=== PATIENT | female | born 1955 | race Caucasian/White ===

== ENCOUNTER 2025-01-29 09:27 | Outpatient (AMB) | payer OTHER, SELFPAY ==
--- NOTE | 2025-01-29 09:28 | MHC.PC.OV ---
Vital Signs 01/29/25 09:30 Height 5 ft 3.39 in Weight 146 lb BMI 25.5 BP 133/63 Respiration 16 Pulse 70 Pulse Source Pulse Oximeter Temp 97.8 F Temp Source Temporal Artery Scan Pulse Oximetry (%) 99 Oxygen Delivery Method Room Air Intake Visit Reasons: Est Care Clinical Laboratory Manager Required: No Accompanied by: Self / Same As Patient Allergies No Known Allergies Allergy (Verified 01/29/25 09:50) Medication List - Last Reconciled 01/29/25 by Sabina Solares PA-C No Known Home Meds Tobacco use date assessed: 01/29/25 Fall risk assessment: No Falls in past year Last assessed Fall Risk: 01/29/25 Dental Screening Dental Screen Date: 01/29/25 Did you have a dental visit in the last 12 months?: Yes Did you have a dental problem in the last 6 months where you did not have access to dental care?: No Was dental information given to patient?: Patient has dentist HPI Est Care HPI Details The patient is a 69-year-old female presenting for an annual physical exam and to establish care with a new primary care provider. She has a history of eustachian tube dysfunction and decreased hearing, for which she purchased hearing aids about a year ago. She is requesting a referral to an ENT specialist for further evaluation. The patient also reports temporomandibular joint syndrome, for which she occasionally uses a mouthguard. She is interested in a home sleep study due to her TMJ syndrome and the presence of dogs at home. She has multiple nevi and is seeking a referral to dermatology, preferring to consult with a group sales coordinator recommended by a friend. The patient has not had a mammogram since 2018 and is agreeable to having one this year. She is also due for a colonoscopy, having last undergone the procedure in 2015, and is agreeable to scheduling it this year. Additionally, she has never had a bone density scan and will be referred for a DEXA scan. The patient denies any chest pain, shortness of breath, recent falls, dyspnea on exertion, leg swelling, blood in stools, or unintentional weight changes. She has not had blood work since 2018 or 2019, when her labs were within normal limits except for mild hypercholesterolemia. Social History - Housing: Lives near [place]. - Medication: Prefers natural remedies and avoids medications. [facility] Medical History (Updated 01/29/25 @ 11:02 by Sabina Solares PA-C) Periodic health assessment, general screening, adult Screening for diabetes mellitus Screening for osteoporosis Breast cancer screening Colon cancer screening TMJ syndrome Annual physical exam Need for assessment for sleep apnea Numerous moles Wears hearing aid in both ears History of mammogram (~07/02/18) Eustachian tube dysfunction Allergies History of Lyme disease Lumbar herniated disc IBS (irritable bowel syndrome) Establishing care with new doctor, encounter for Surgical History History of colonoscopy (~11/04/14) Hx of lumbar discectomy Family History Father Dementia Mother Dementia Social History Housing: House Alcohol intake: current Alcohol intake frequency: holidays/special occasions only Patient Tobacco Use Status: Never used Tobacco service: No Current occupational status: employed and retired 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 1. Little interest or pleasure in doing things: not at all 2. Feeling down, depressed, or hopeless: not at all 3. Trouble falling or staying asleep, or sleeping too much: not at all 4. Feeling tired or having little energy: not at all 5. Poor appetite or overeating: not at all 6. Feeling bad about yourself - or that you are a failure or have let yourself or your family down: not at all 7. Trouble concentrating on things, such as reading the newspaper or watching television: not at all 8. Moving or speaking so slowly that other people could have noticed. Or the opposite - being so fidgety or restless that you have been moving around a lot more than usual: not at all 9. Thoughts that you would be better off or of hurting yourself in some way: not at all Total score: 0 Depression Screening Interpretation: Negative Depression Screening Done: Yes 67744 - PHQ-9 Billing: Yes Source: Developed by Drs. Malik Escobar, Berny Hackett and colleagues, with an educational cisco from [employer]. Thrive Questionnaire Date Thrive assessed: 01/29/25 I am a: Patient What is your living situation today?: I have a steady place to live Within the past 12 months, did the food you bought not last and you didn't have the money to get more?: Never true Within the past 12 months, did you worry whether your food would run out before you got money to buy more?: Never true Do you have trouble paying for medicines?: No Do you have trouble getting transportation to medical appointments?: No Do you have trouble paying your heating and electricity bill?: No Do you have trouble taking care of your child, family member or friend?: No Do you have trouble with day-to-day activities such as bathing, preparing meals, shopping, managing finances, etc.?: No Are you currently unemployed and looking for a job?: No Are you interested in more education?: No Please select the resources that you would like help with: None THRIVE Score: 0 AUDIT C Alcohol Use Questionnaire (AUDIT-C) 1. How often do you have a drink containing alcohol?: Monthly or less 2. How many drinks containing alcohol do you have on a typical day when you are drinking?: 1 or 2 3. How often do you have six or more drinks on one occasion?: Never Total Score: 1 Score Reviewed/Action Taken: No SUDHIR-7 AMB Questionnaire SUDHIR-7 Date SUDHIR - 7 assessed: 01/29/25 Feeling nervous, anxious, or on edge: 0 = Not at all Not being able to stop or control worryin = Not at all Worrying too much about different things: 0 = Not at all Trouble relaxin = Not at all Being so restless that it is hard to sit still: 0 = Not at all Becoming easily annoyed or irritable: 0 = Not at all Feeling afraid as if something awful might happen: 0 = Not at all Total SUDHIR-7 score (0-4 normal; 5-9 mild; 10-14 moderate; 15-21 severe): 0 Source: Developed by Ruba Lopez Kurt Kroenke and colleagues, with an educational cisco from [employer]. SUDHIR-7 Assessment Billing SUDHIR-7 Assessment Tool: SUDHIR-7 Assessment 19258 Review of Systems Const Details: - Cardiovascular: Denies chest pain, leg swelling. - Respiratory: Denies shortness of breath, dyspnea on exertion. - Gastrointestinal: Denies blood in stools. - General: Denies unintentional weight gain or loss, recent falls. Physical exam (Primary Care) Vital Signs: Last Vital Signs Temp 97.8 F 01/29/25 09:30 Pulse 70 01/29/25 09:30 Resp 16 01/29/25 09:30 BP 133/63 01/29/25 09:30 Pulse Ox 99 01/29/25 09:30 Oxygen Delivery Method Room Air 01/29/25 09:30 Care Plan Goal for BP management: <140/90 at Goal BMI result Body Mass Index 25.5 BMI Assessment/Plan discussion: High BMI High, discussed plan: lifestyle, weight reduction, dietary, physical activity and alcohol moderation Tobacco/Smoking Status: Tobacco use Status Tobacco use date assessed 01/29/25 01/29/25 09:38 Patient Tobacco Use Status Never used Tobacco 01/29/25 09:38 PHQ-9: PHQ-9 Score PHQ-9: Total score 0 01/29/25 09:38 Depression Screening Interpretation: Negative Thrive Assessment: Date of Thrive Assessment Date Thrive assessed 01/29/25 01/29/25 09:38 Const Other: Appearance: Alert. Oriented X3. No acute distress. Head: Normal external exam. Normocephalic. Atraumatic. Eyes: Pupils are equal, round, and reactive to light. Extraocular movements intact. Conjunctiva and sclera normal. Eyelids normal. Ears: External auditory canal normal. Tympanic membranes normal. History of eustachian tube dysfunction and wax in both ears with decreased hearing. Throat: Pharynx normal. Uvula midline. Moist mucous membranes. Neck: Normal inspection. Neck supple. Full range of motion. No adenopathy. Thyroid Normal. No meningeal signs. No neck mass noted. Cardiovascular: Normal heart rate and rhythm. Heart sound normal. No murmurs noted. Pulses normal throughout. Respiratory: No respiratory distress. Painless inspiration. Breath sounds normal. No wheezes/rales/rhonchi noted. Chest nontender. No accessory muscle usage noted or decreased air movement noted. Abdomen: Soft and nontender. Bowel sounds normal in all 4 quadrants. No distention noted. No organomegaly noted. No visible injury noted. Back: No costovertebral angle tenderness. Full range of motion noted. Skin: Skin warm and dry. Normal skin color. Normal skin turgor. No rashes/lesions/lacerations noted. Numerous moles noted. Extremities: No lower extremity edema. Extremities exhibit normal range of motion. Extremities nontender. Neuro: Oriented X 3. No motor deficit. No sensory deficit. Reflexes normal. Coding Level of Care Code New Pt Level 4 (31250) New Pt Prev Care >65yr (26745) Diagnoses Annual physical exam Z00.00 Establishing care with new doctor, encounter for Z76.89 TMJ syndrome M26.629 Numerous moles D22.9 Colon cancer screening Z12.11 Breast cancer screening Z12.39 Screening for osteoporosis Z13.820 Screening for diabetes mellitus Z13.1 Periodic health assessment, general screening, adult Z00.00 Eustachian tube dysfunction H69.90 Additional Codes PHQ-9 - 85720 - PHQ-9 Billing: Yes ([id number]) SUDHIR-7 Assessment Billing - SUDHIR-7 Assessment Tool: SUDHIR-7 Assessment 81606 ([id number]) Time Spent (min) 45 Assessment & Plan Assessment & Plan (1) Annual physical exam: Code(s): Z00.00 - Encounter for general adult medical examination without abnormal findings Category: Medical (2) Establishing care with new doctor, encounter for: Code(s): Z76.89 - Persons encountering health services in other specified circumstances Category: Medical (3) TMJ syndrome: Code(s): M26.629 - Arthralgia of temporomandibular joint, unspecified side Category: Medical Plan: A home sleep study is planned due to the patient's TMJ syndrome and her preference to remain at home with her dogs. Condition is chronic and stable will continue to monitor. (4) Numerous moles: Code(s): D22.9 - Melanocytic nevi, unspecified Category: Medical Plan: The patient will be referred to dermatology for evaluation of multiple nevi, with a preference for a group sales coordinator recommended by a friend. Condition is chronic and stable will continue to monitor. (5) Colon cancer screening: Code(s): Z12.11 - Encounter for screening for malignant neoplasm of colon Category: Medical Plan: The patient is due for a colonoscopy this year, as her last procedure was in 2014, and she is agreeable to scheduling it. (6) Breast cancer screening: Code(s): Z12.39 - Encounter for other screening for malignant neoplasm of breast Category: Medical Plan: The patient has not had a mammogram since 2018 and is agreeable to having one this year. (7) Screening for osteoporosis: Code(s): Z13.820 - Encounter for screening for osteoporosis Category: Medical Plan: The patient has never had a bone density scan and will be referred for a DEXA scan. (8) Screening for diabetes mellitus: Code(s): Z13.1 - Encounter for screening for diabetes mellitus Category: Medical Plan: A1c ordered for diabetes screening. (9) Periodic health assessment, general screening, adult: Code(s): Z00.00 - Encounter for general adult medical examination without abnormal findings Category: Medical Plan: Will order CBC, CMP, thyroid function tests to assess the patient for anemia, kidney function, potassium, sodium, thyroid, liver enzymes, lipid panel, vitamin D deficiency, vitamin B12 or folate deficiency, magnesium deficiency, diabetes assessment, inflammatory marker assessment. (10) Eustachian tube dysfunction: Code(s): H69.90 - Unspecified Eustachian tube disorder, unspecified ear Category: Medical Plan: The patient will be referred to an ENT specialist for further evaluation of her eustachian tube dysfunction and hearing loss. Condition is chronic and stable will continue to monitor. Plan Plan Patient was informed and verbally consented to the use of an ambient scribe for clinic note documentation during this visit. 1. Eustachian Tube Dysfunction The patient will be referred to an ENT specialist for further evaluation of her eustachian tube dysfunction and hearing loss. 2. Temporomandibular Joint Syndrome A home sleep study is planned due to the patient's TMJ syndrome and her preference to remain at home with her dogs. 3. Multiple Nevi The patient will be referred to dermatology for evaluation of multiple nevi, with a preference for a group sales coordinator recommended by a friend. 4. Preventative Care: Colonoscopy The patient is due for a colonoscopy this year, as her last procedure was in 2014, and she is agreeable to scheduling it. 5. Preventative Care: Mammogram The patient has not had a mammogram since 2018 and is agreeable to having one this year. 6. Preventative Care: Bone Density Scan (Dexa) The patient has never had a bone density scan and will be referred for a DEXA scan. During the visit, we discussed the need for referrals to ENT and dermatology for her eustachian tube dysfunction, hearing loss, and multiple nevi. We also reviewed the importance of completing her overdue mammogram and colonoscopy, as well as scheduling a bone density scan for osteoporosis screening. The patient is agreeable to these plans and understands the need for these preventative measures. We also discussed the option of a home sleep study for her TMJ syndrome, considering her preference to stay at home with her dogs. Orders: Orders XR DEXA axial skeleton Today M81.0 - Age-related osteoporosis without current pathological fracture Comprehensive Weiner. Panel Fast Today Z00.00 - Encounter for general adult medical examination without abnormal findings Hemoglobin A1c Today Z00.00 - Encounter for general adult medical examination without abnormal findings Vitamin B12 and Folate Today Z00.00 - Encounter for general adult medical examination without abnormal findings C Reactive Protein Today Z00.00 - Encounter for general adult medical examination without abnormal findings RT home sleep study Today Z01.89 - Encounter for other specified special examinations MM screening mammo BI Today Z12.31 - Encounter for screening mammogram for malignant neoplasm of breast Complete Blood Count Auto Diff Today Z00.00 - Encounter for general adult medical examination without abnormal findings Lipid Panel Today Z00.00 - Encounter for general adult medical examination without abnormal findings Liver Panel Today Z00.00 - Encounter for general adult medical examination without abnormal findings Magnesium Today Z00.00 - Encounter for general adult medical examination without abnormal findings Vitamin D 25-OH Total Today Z00.00 - Encounter for general adult medical examination without abnormal findings TSH reflex Free T4 Today Z00.00 - Encounter for general adult medical examination without abnormal findings Referrals Gastroenterology Referral Z12.11 - Encounter for screening for malignant neoplasm of colon Ear/Nose/Throat Referral H69.90 - Unspecified Eustachian tube disorder, unspecified ear, Z97.4 - Presence of external hearing-aid Patient Instructions: - Schedule and complete a colonoscopy this year. - Schedule and complete a mammogram this year. - Schedule a bone density scan (DEXA) for osteoporosis screening. - Follow up with ENT for eustachian tube dysfunction and hearing loss. - Consult with a group sales coordinator for evaluation of multiple nevi. - Consider a home sleep study for TMJ syndrome.
[2025-01-29 09:30] VITALS: BP 133/63; PULSE 70; RESP 16; TEMP 36.6; O2SAT 99; BMI 25.5
--- OUTSIDE RECORDS SUMMARY | 2025-01-29 10:12 | XMS_ITS | Patient Health Record ---
Author Organization Jac [facility]enes MD Address [address] [place], [place] [id number] Care Team Providers Care Carnival Worker Name Role Phone Malik Perdue DO Primary Care Provider Unavail able Allergies No Known Allergies Reason For Referral No Information Plan Of Treatment No Information Insurance Providers Payer Name Payer Address Payer Phone Subscriber Number Group Number Insured Name Patient Relationship to Insured Coverage Start Date Coverage End Date [facility] [address] [facility] [address] [facility] [place] [phone] [id number] Andria Ayala Self - patient is the insured
== END 2025-01-29 10:10 | disposition home or self-care (01) ==
PROVIDERS: PCP Internal Medicine; Visit Provider Physician Assistant Medical
DX: Z00.00 Encounter for general adult medical examination without abnormal findings (principal); M26.629 Arthralgia of temporomandibular joint, unspecified side; H69.93 Unspecified Eustachian tube disorder, bilateral; Z76.89 Persons encountering health services in other specified circumstances; D22.9 Melanocytic nevi, unspecified; Z12.11 Encounter for screening for malignant neoplasm of colon; Z12.39 Encounter for other screening for malignant neoplasm of breast; Z13.820 Encounter for screening for osteoporosis; Z13.1 Encounter for screening for diabetes mellitus

== ENCOUNTER → 2025-01-29 09:27 | Outpatient (BNVA) | payer OTHER, SELFPAY | PROVIDERS: PCP Internal Medicine; Visit Provider Physician Assistant Medical | DX: Z00.00 Encounter for general adult medical examination without abnormal findings (principal); M26.629 Arthralgia of temporomandibular joint, unspecified side; H69.90 Unspecified Eustachian tube disorder, unspecified ear; D22.9 Melanocytic nevi, unspecified; M81.0 Age-related osteoporosis without current pathological fracture; Z76.89 Persons encountering health services in other specified circumstances | CPT/HCPCS: 96127 ==